=== PATIENT | male | born 1970 | race American Indian/Alaskan Native ===

== ENCOUNTER 2017-09-22 17:40 | Emergency (ER) | payer OTHER ==
[2017-09-22 17:40] VITALS: BMI 25.7
[2017-09-22 17:44] VITALS: BP 123/76; PULSE 80; RESP 16; TEMP 98; O2SAT 98
--- NOTE | 2017-09-22 19:29 | ED PDOC ---
HPI: Psych/Substance Abuse Time Seen by Provider: 09/22/17 18:04 Chief Complaint (Nursing): Alcohol Ingestion Chief Complaint (Provider): alcohol Additional Complaint(s): 46yo M in Ed for eval for intoxication[place] unstable gait/slurred speech. Past Medical History Reviewed: Historical Data, Nursing Documentation, Vital Signs Vital Signs: Last Vital Signs Temp 98.0 F 09/22/17 17:42 Pulse 80 09/22/17 17:42 Resp 16 09/22/17 17:42 BP 123/76 09/22/17 17:42 Pulse Ox 98 09/22/17 17:42 - Medical History PMH: HTN - Family History Family History: States: Unknown Family Hx - Immunization History Hx Tetanus Toxoid Vaccination: No Hx Influenza Vaccination: No Hx Pneumococcal Vaccination: No - Home Medications Home Medications: Ambulatory Orders Medication Instructions Recorded No Known Home Med 11/29/16 - Allergies Allergies/Adverse Reactions: Allergies Allergy/AdvReac Type Severity Reaction Status Date / Time No Known Allergies Allergy Verified 09/22/17 17:42 Review of Systems ROS Statement: Except As Marked, All Systems Reviewed And Found Negative Review Of Systems: ROS cannot be obtained secondary to pt's inabilty to answer questions. Physical Exam - Reviewed Nursing Documentation Reviewed: Yes Vital Signs Reviewed: Yes - Physical Exam Appears: Positive for: Non-toxic, No Acute Distress Head Exam: Positive for: ATRAUMATIC, NORMAL INSPECTION, NORMOCEPHALIC Skin: Positive for: Normal Color Eye Exam: Positive for: Normal appearance Cardiovascular/Chest: Positive for: Regular Rate, Rhythm Respiratory: Positive for: CNT, Normal Breath Sounds Neurologic/Psych: Positive for: Alert (but with slurred speech and unstable gait. ), Oriented - ECG O2 Sat by Pulse Oximetry: 98 Medical Decision Making Medical Decision Making: pt stable in ED pending clinical sobriety. 2327 pt is stable for d.c clincally sober. Disposition - Clinical Impression Clinical Impression: Alcohol intoxication - Patient ED Disposition Is Patient to be Admitted: No Counseled Patient/Family Regarding: Need For Followup - Disposition Disposition: Routine/Home Disposition Time: 23:27 Condition: STABLE Instructions: Alcohol Intoxication (DC) Forms: [employer] (Japanese)
== END 2017-09-22 23:59 | disposition home or self-care (01) ==
LOC: H.ER 17:40
DX: F10.129 Alcohol abuse with intoxication, unspecified (principal)

== ENCOUNTER 2018-01-06 16:19 | Emergency (ER) | payer OTHER, SELFPAY ==
[2018-01-06 16:19] VITALS: BMI 25.7
[2018-01-06 16:22] VITALS: BP 147/92; PULSE 96; RESP 16; TEMP 98.2; O2SAT 100
--- NOTE | 2018-01-06 17:23 | ED PDOC ---
HPI: Psych/Substance Abuse Time Seen by Provider: 01/06/18 17:06 Chief Complaint (Nursing): Alcohol Ingestion Chief Complaint (Provider): Alcohol abuse History Per: Patient History/Exam Limitations: no limitations Onset/Duration Of Symptoms: Days Current Symptoms Are (Timing): Still Present Additional Complaint(s): Pt. with alcohol abuse. States he drank a lot and was found sleeping on the stairs. Is homeless. No drugs. No acute fall or injury. Denies headaches. no numbness, tingles. Not suicidal or homicidal. Past Medical History Reviewed: Nursing Documentation, Vital Signs Vital Signs: Last Vital Signs Temp 98.2 F 01/06/18 16:22 Pulse 96 H 01/06/18 16:22 Resp 16 01/06/18 16:22 BP 147/92 H 01/06/18 16:22 Pulse Ox 100 01/06/18 16:22 - Medical History PMH: HTN - Family History Family History: States: Unknown Family Hx - Social History Alcohol: > 2 Drinks/Day - Immunization History Hx Tetanus Toxoid Vaccination: No Hx Influenza Vaccination: No Hx Pneumococcal Vaccination: No - Home Medications Home Medications: Ambulatory Orders Medication Instructions Recorded No Known Home Med 11/29/16 - Allergies Allergies/Adverse Reactions: Allergies Allergy/AdvReac Type Severity Reaction Status Date / Time No Known Allergies Allergy Verified 01/06/18 16:25 Review of Systems ROS Statement: Except As Marked, All Systems Reviewed And Found Negative Physical Exam - Reviewed Nursing Documentation Reviewed: Yes Vital Signs Reviewed: Yes - Physical Exam Appears: Positive for: Non-toxic, No Acute Distress Head Exam: Positive for: ATRAUMATIC, NORMAL INSPECTION, NORMOCEPHALIC Skin: Positive for: Normal Color, Warm, DRY Eye Exam: Positive for: EOMI, Normal appearance, PERRL ENT: Positive for: Normal ENT Inspection Neck: Positive for: Normal, Painless ROM Cardiovascular/Chest: Positive for: Regular Rate, Rhythm Respiratory: Positive for: CNT, Normal Breath Sounds Gastrointestinal/Abdominal: Positive for: Normal Exam, Bowel Sounds, Soft. Negative for: Tenderness Back: Positive for: Normal Inspection. Negative for: L CVA Tenderness, R CVA Tenderness Extremity: Positive for: Normal ROM. Negative for: Tenderness, Pedal Edema Neurologic/Psych: Positive for: Alert, Oriented. Negative for: Motor/Sensory Deficits - ECG O2 Sat by Pulse Oximetry: 100 Pulse Ox Interpretation: Normal - Progress ED Course And Treament: 2355: Stable. AAOx3. Pain free. Tolerated PO. Fu with pcp. Ambulated with no issues. Disposition - Clinical Impression Clinical Impression: Alcohol abuse - Patient ED Disposition Is Patient to be Admitted: No - Disposition Referrals: [facility] [Outside] - 01/10/18 Disposition: Routine/Home Disposition Time: 00:15 Condition: STABLE Additional Instructions: Return if not better in 3 days. Instructions: Alcohol Intoxication (ED)
== END 2018-01-07 01:30 | disposition home or self-care (01) ==
LOC: H.ER 16:19
DX: F10.10 Alcohol abuse, uncomplicated (principal); I10 Essential (primary) hypertension; Z59.0 Homelessness

== ENCOUNTER 2018-01-15 22:53 | Emergency (ER) | payer SELFPAY ==
[2018-01-15 22:53] VITALS: BMI 25.7
[2018-01-15 23:06] VITALS: BP 155/109; PULSE 78; RESP 18; TEMP 97.7; O2SAT 100
--- NOTE | 2018-01-16 00:40 | ED PDOC ---
HPI: Psych/Substance Abuse Time Seen by Provider: 01/15/18 23:03 Chief Complaint (Nursing): Alcohol Ingestion Chief Complaint (Provider): ETOH ED Caveat: Intoxicated History Per: EMS Onset/Duration Of Symptoms: Unknown Current Symptoms Are (Timing): Still Present Modifying Factor(s): Alcohol Additional Complaint(s): 47 y/o male who is well known to this department. He was brought in by EMS this evening for evaluation after witnesses reported public intoxication. History is limited secondary to intoxication. Past Medical History Vital Signs: Last Vital Signs Temp 97.7 F 01/15/18 23:02 Pulse 78 01/15/18 23:02 Resp 18 01/15/18 23:02 BP 155/109 H 01/15/18 23:02 Pulse Ox 100 01/15/18 23:02 - Medical History PMH: HTN - Family History Family History: States: Unknown Family Hx - Immunization History Hx Tetanus Toxoid Vaccination: No Hx Influenza Vaccination: No Hx Pneumococcal Vaccination: No - Home Medications Home Medications: Ambulatory Orders Medication Instructions Recorded No Known Home Med 11/29/16 - Allergies Allergies/Adverse Reactions: Allergies Allergy/AdvReac Type Severity Reaction Status Date / Time No Known Allergies Allergy Verified 01/15/18 23:02 Review of Systems Review Of Systems: ROS cannot be obtained secondary to pt's inabilty to answer questions. Physical Exam - Physical Exam Appears: Negative for: Well (intoxicated) Head Exam: Positive for: ATRAUMATIC Skin: Positive for: Normal Color, Warm, Dry Cardiovascular/Chest: Positive for: Regular Rate, Rhythm Respiratory: Positive for: Normal Breath Sounds Extremity: Positive for: Normal ROM Neurologic/Psych: Positive for: Alert, Other (speech is slurred) - ECG O2 Sat by Pulse Oximetry: 100 (RA) Pulse Ox Interpretation: Normal Medical Decision Making Medical Decision Making: Impression: Intoxication Plan: - Labs Labs reviewed, alcohol level 294. 05:54: On reevaluattion the patient is clinically sober and will be discharged home. Documented by Tammi Fink acting as a scribe for Chandan Ludwig MD. Provider Attestation All medical record entries made by the Scribe were at my direction and personally dictated by me. I have reviewed the chart and agree that the record accurately reflects my personal performance of the history, physical exam, medical decision making, and the department course for this patient. I have also personally directed, reviewed, and agree with the discharge instructions and disposition. Disposition - Clinical Impression Clinical Impression: Alcohol abuse with intoxication Doctor Will See Patient In The: Office Counseled Patient/Family Regarding: Diagnosis, Need For Followup - Disposition Disposition: Routine/Home Disposition Time: 05:54 Condition: STABLE Instructions: Alcohol Abuse and Alcoholism (DC) Forms: [employer] (Malagasy)
== END 2018-01-16 06:00 | disposition home or self-care (01) ==
LOC: H.ER 22:53
DX: F10.129 Alcohol abuse with intoxication, unspecified (principal); I10 Essential (primary) hypertension; Y90.8 Blood alcohol level of 240 mg/100 ml or more

== ENCOUNTER 2018-02-18 21:23 | Emergency (ER) | payer SELFPAY ==
[2018-02-18 21:23] VITALS: BMI 25.7
--- NOTE | 2018-02-18 22:11 | ED PDOC ---
HPI: Psych/Substance Abuse Time Seen by Provider: 02/18/18 21:35 Chief Complaint (Nursing): Alcohol Ingestion Additional Complaint(s): 47 y/o male presents to the ER for alcohol intoxication. Unable to obtain a more detailed history as the patient is intoxicated. Past Medical History Vital Signs: Last Vital Signs Temp 97.2 F L 02/18/18 21:26 Pulse 77 02/18/18 21:26 Resp 16 02/18/18 21:26 BP 125/85 02/18/18 21:26 Pulse Ox 98 02/18/18 21:26 - Medical History PMH: HTN - Family History Family History: States: Unknown Family Hx - Immunization History Hx Tetanus Toxoid Vaccination: No Hx Influenza Vaccination: No Hx Pneumococcal Vaccination: No - Home Medications Home Medications: Ambulatory Orders Medication Instructions Recorded No Known Home Med 11/29/16 - Allergies Allergies/Adverse Reactions: Allergies Allergy/AdvReac Type Severity Reaction Status Date / Time No Known Allergies Allergy Verified 01/15/18 23:02 Review of Systems Review Of Systems: ROS cannot be obtained secondary to pt's inabilty to answer questions. Physical Exam - Physical Exam Appears: Positive for: Well, No Acute Distress (is sleeping, but is responside to painful stimuli, +odor of alcohol, +ill kept in appearance) Head Exam: Positive for: ATRAUMATIC, NORMAL INSPECTION, NORMOCEPHALIC Skin: Positive for: Normal Color, Warm, Dry, Rash (+excoriations perales) Neck: Positive for: Normal, Supple Cardiovascular/Chest: Positive for: Regular Rate, Rhythm. Negative for: Murmur Respiratory: Positive for: Normal Breath Sounds. Negative for: Decreased Breath Sounds, Rales, Rhonchi, Wheezing Gastrointestinal/Abdominal: Positive for: Soft. Negative for: Tenderness Back: Positive for: Normal Inspection. Negative for: Vertebral Tenderness Extremity: Positive for: Normal ROM, Capillary Refill (normal). Negative for: Tenderness, Deformity, Swelling Neurologic/Psych: Positive for: mason helper II-XII, Other (+slurred speech) - ECG O2 Sat by Pulse Oximetry: 98 Medical Decision Making Medical Decision Making: Impression : etoh intoxication Plan : Observe in the ER until clinically sober. Re-evaluation at 2300 : Pt still sleeping, but responsive to painful stimuli, still not sober at this time, will continue to observe until clinically sober and safe for d/c. 0000 : Case endorsed to FELICIANO Baer pending re-evaluation, sobriety and disposition. Disposition - Clinical Impression Clinical Impression: Alcohol intoxication - Patient ED Disposition Is Patient to be Admitted: Transfer of Care (Case endorsed to FELICIANO Baer pending re-evaluation, sobriety and disposition.) - Disposition Disposition Time: 00:00 Condition: STABLE - PA / PROGRAMMING DEVELOPMENT PROJECT MANAGER / Resident Statement MD/DO has reviewed & agrees with the documentation as recorded.
--- NOTE | 2018-02-18 23:45 | ED PDOC ---
- ECG O2 Sat by Pulse Oximetry: 98 (RA) Pulse Ox Interpretation: Normal Medical Decision Making Medical Decision Making: Time: 00:00 Case endorsed to real estate underwriter, Keyur GOLDSMITH due to shift change. Pertinent details reviewed. Patient pending clinical sobriety. 00:05 Accucheck 113 01:25 Patient sleeping in ED stretcher. No acute distress noted. 0330 Patient sleeping in ED stretcher. No acute distress noted. 0450 Patient awake, alert, and oriented x3. Ambulatory in ED with steady gait. Patient was able to ambulate to bathroom without assistance. Patient noted to have bed begs by ED staff. Patient offered shower and decon, however refused. Due to improvement of presenting symptoms, patient requires no further medical attention in ED. Based on history, exam and diagnostic results, plan will be for outpatient follow up. Patient instructed to follow-up with pmd / referral provided / the clinic in 1- 2 days without fail. Return to the emergency room at any time for any new or worsening symptoms. Patient states she fully agrees with and understands discharge instructions. States that she agrees with the plan and disposition. Verbalized and repeated discharge instructions and plan. I have given the patient opportunity to ask any additional questions. Scribe Attestation: Documented by Rodolfo Sousa acting as a scribe for PA. MD Manny Wade Attestation: All medical record entries made by the Scribe were at my direction and personally dictated by me. I have reviewed the chart and agree that the record accurately reflects my personal performance of the history, physical exam, medical decision making, and the department course for this patient. I have also personally directed, reviewed, and agree with the discharge instructions and disposition. Disposition Counseled Patient/Family Regarding: Diagnosis, Need For Followup - Clinical Impression Clinical Impression: Alcohol intoxication - POA Present On Arrival: None - Disposition Referrals: [facility] [Outside] Disposition: Routine/Home Disposition Time: 04:52 Condition: STABLE Instructions: Alcohol Abuse and Alcoholism (DC) Forms: [address] (Montenegrin) Print Language: OCCITAN
[2018-02-19 05:10] VITALS: BP 125/74; PULSE 81; RESP 17; TEMP 97.9; O2SAT 99
== END 2018-02-19 05:05 | disposition home or self-care (01) ==
LOC: H.ER 21:23
DX: F10.129 Alcohol abuse with intoxication, unspecified (principal); I10 Essential (primary) hypertension